=== PATIENT | female | born 1980 | race Caucasian/White ===

== ENCOUNTER 2023-10-26 00:13 | Emergency (ER) | payer OTHER, SELFPAY ==
[2023-10-26 00:13] VITALS: BP 125/84; PULSE 84; RESP 17; TEMP 36.2; O2SAT 98; BMI 22.5
[2023-10-26] MEDS: Epi Pen (EQUIV) 0.3 MG Syringe IM (01:27)
[2023-10-26] MEDS: predniSONE 20 MG Tablet 60 MG PO (01:27)
--- NOTE | 2023-10-26 02:06 | EX.ED.DYSGE1 ---
HPI History of Present Illness Chief Complaint: Allergic Reaction Informant: patient and spouse/S.O. Narrative Narrative: Patient is a 43-year-old female with past medical history of hypothyroidism. She states that she noticed when she was at work today she felt some irritation across to her chest. However she did not think much of this and denies any new exposures. She states as time passed she noticed that she was developing hives and redness and that it began to spread from her chest towards her arms and legs and then she states that her tongue/lips felt kind of thick. She states she took Benadryl and Pepcid at home but despite doing this symptoms persisted and therefore she comes in for evaluation [facility] Medical History Hypothyroidism Home Medications ?Medication ?Instructions ?Recorded ?Last Taken ?Type levothyroxine 112 mcg tablet 137 mcg PO DAILY 02/26/13 01/10/15 History 1 epinephrine 0.3 mg/0.3 mL 0.3 mg (0.3 mL) IM Q15M PRN 10/26/23 Unknown Rx injection, auto-injector anaphylaxis #2 ea norgestimate 0.25 mg-ethinyl 1 tab PO DAILY 10/26/23 Unknown History estradiol 35 mcg tablet prednisone 20 mg tablet 40 mg (2 x 20 mg) PO DAILY 7 days 10/26/23 Unknown Rx #14 tabs Allergy/AdvReac Type Severity Reaction Status Date / Time No Known Allergies Allergy Verified 10/26/23 00:14 Social History Smoking Status: Never smoker [facility] ED Constitutional Constitutional ED: Denies chills or fever(s) ENT ENT ED: Denies sore throat or throat swelling Cardiovascular Cardiovascular: Denies chest pain Respiratory/Chest Respiratory/Chest: Denies cough or dyspnea Gastrointestinal Gastrointestinal: Denies abdominal pain, diarrhea, nausea or vomiting Genitourinary Genitourinary ED: Denies dysuria Musculoskeletal Musculoskeletal: Denies myalgias Integumentary Reports pruritus and rash Neurologic Neurologic: Denies headache(s) Hematologic/Lymphatic Hematologic/Lymphatic: Denies easy bleeding or easy bruising EXAM Physical Exam Const Vital Signs: 10/26/23 00:13 Temperature 97.1 F L Temperature Source Temporal Pulse Rate 84 Respiratory Rate 17 Blood Pressure 125/84 H Blood Pressure Mean 97 Pulse Ox 98 Positive well nourished and well developed General Appearance ED: well developed HEENT Reports moist mucous membranes HEENT Narrative: No tongue or lip swelling no oral lesions no airway edema or compromise Eyes PERRL and EOMs intact bilaterally Neck supple Resp normal respiratory effort and clear to auscultation bilaterally Cardio regular rate and regular rhythm GI non-distended Extremity normal to inspection and full ROM Neuro oriented x3, CN's II-XII intact bilaterally, moves all extremities and no focal motor deficits Sensorium / Orientation: alert Psych mental status grossly normal Skin no wounds, skin turgor normal and No no jaundice Skin Narrative: Patient has diffuse erythematous blanchable nature with hive-like changes that extends from her head all the way down to her feet without involvement of the palms or soles most consistent with allergic reaction MDM MDM MDM Narrative Medical decision making narrative: Patient presented to the ER in no acute respiratory distress therefore there is no need for emergent intubation or airway stabilization. Differential diagnosis is for acute allergic reaction versus angioedema. As the patient does not have tongue or lip swelling change in voice or difficulty with secretions I do not believe she is developing angioedema and there are no physical exam findings to suggest this or hereditary angioedema. The erythema and urticaria are most consistent with acute allergic reaction and without involvement of the palms or soles or pustule changes I do not feel this is infectious. Also as patient reported that the rash/symptoms began around the chest which was not exposed to anything new I have low concern for contact dermatitis. As patient took Benadryl and Pepcid at home there is no need to provide this in the ER but secondary to the progressive nature of the rash despite adequate treatment she was given steroids and epinephrine. After receiving this she had improvement of her rash and no progression airway compromise or tongue or lip swelling. 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 but should be placed on prednisone for improved inflammatory control as well as given an EpiPen in case symptoms worsen History & Record Review Discussion w/independent historian: Patient and Significant other Discharge Plan Triage Chief Complaint: Allergic Reaction ED Provider: Christian Galindo Dx/Rx/DC Orders Clinical Impression: Acute allergic reaction, Hypothyroidism Instructions: ED General Allergic Reactions Prescriptions: New prednisone 20 mg tablet 40 mg PO DAILY 7 Days Qty: 14 0RF epinephrine 0.3 mg/0.3 mL auto-injector 0.3 mg IM Q15M PRN (Reason: anaphylaxis) Qty: 2 0RF Rx Instructions: for 2 doses No Action levothyroxine 112 MCG tablet 137 mcg PO DAILY Patient Comments: pt takes 2 112 mcg tablets on Tuesday, Tuesday and Tuesday norgestimate-ethinyl estradiol 0.25-35 mg-mcg tablet 1 tab PO DAILY Primary Care Provider: Juan J Murrieta Referrals: Juan J Murrieta MD [Primary Care Provider] - Print Language: Slovak Disposition Disposition: Home, Self Care
[2023-10-26 02:18] VITALS: BP 125/84; PULSE 84; RESP 17; TEMP 36.2; O2SAT 100
== END 2023-10-26 02:19 | disposition home or self-care (01) ==
PROVIDERS: Emergency Provider Emergency Medicine; PCP Family Medicine; Visit Provider Emergency Medicine
DX: T78.40XA Allergy, unspecified, initial encounter (principal); E03.9 Hypothyroidism, unspecified; X58.XXXA Exposure to other specified factors, initial encounter
CPT/HCPCS: 99282